=== PATIENT | female | born 1960 | race Caucasian/White ===

== ENCOUNTER 2019-01-18 14:44 | Inpatient (IN) | payer OTHER ==
[2019-01-18 15:11] VITALS: BMI 22.4
--- NOTE | 2019-01-18 15:36 | HP ---
CIWA Score Nausea/Vomitin-Int. Nausea w/Dry Heave Muscle Tremors: 4-Moderate,w/Arms Extend Anxiety: 3 Agitation: 3 Paroxysmal Sweats: 3 (Increased facial moisture) Orientation: 0-Oriented Tacttile Disturbances: 0-None Auditory Disturbances: 0-None Visual Disturbances: 0-None Headache: 2-Mild CIWA-Ar Total Score: 19 - Admission Criteria OASAS Guidelines: Admission for Medically Managed Detox: Requires at least one of the followin. CIWA greater than 12 2. Seizures within the past 24 hours 3. Delirium tremens within the past 24 hours 4. Hallucinations within the past 24 hours 5. Acute intervention needed for co occurring medical disorder 6. Acute intervention needed for co occurring psychiatric disorder 7. Severe withdrawal that cannot be handled at a lower level of care (continued vomiting, continued diarrhea, abnormal vital signs) requiring intravenous medication and/or fluids 8. Patient presents the following: CIWA greater than 12 Admission Criteria Met: Admission criteria met [facility] Chief Complaint: Alcohol withdrawal Allergies/Adverse Reactions: Allergies Allergy/AdvReac Type Severity Reaction Status Date / Time No Known Allergies Allergy Verified 01/18/19 15:02 History of Present Illness: Here for alcohol detox. First time at [facility] detox, but has been in other programs. Hx: Blackouts. Denies seizures or overdose. Alcohol use since age 17. Has been drinking current amount x 6 months. Heroin use started at age 15. No relapse in years. Has been on a MMTP for 12 years. Now currently at [place] [facility]. Current dose is 70 mg. Has a Narcan Kit at home. PMHx: Implanted cardiac catheterization technologist; No movement and shoulder pain (L) arm, eczema MHHx: Anxiety and depression. Denies thoughts of harming self or others. Patient Name: Deondre Cullen Date: 1960 Address: [address] [place] [address] Sex: Female Rx Written Rx Dispensed Drug Quantity Days Supply Prescriber Name 12/05/2018 12/06/2018 oxycodone hcl 10 mg tablet 40 5 Brandt Latham C 11/20/2018 11/21/2018 oxycodone hcl 10 mg tablet 40 5 Brandt Latham C 11/18/2018 11/18/2018 oxycontin er 20 mg tablet 14 7 Luis Whitfield (PA) 11/18/2018 11/18/2018 oxycodone hcl 10 mg tablet 28 7 Luis Whitfield (PA) 11/06/2018 11/07/2018 oxycodone hcl 5 mg tablet 40 5 DarnellayoBrandt C 10/03/2018 10/03/2018 oxycodone hcl 10 mg tablet 20 4 Dany Page (MD) 09/17/2018 09/17/2018 oxycodone hcl 5 mg tablet 15 7 Brando Estrada (DO) 09/11/2018 09/11/2018 oxycodone hcl 5 mg tablet 30 6 Brando Estrada (DO) 09/01/2018 09/02/2018 hydromorphone 2 mg tablet 30 8 Brando Estrada (DO) 08/29/2018 08/30/2018 hydromorphone 2 mg tablet 8 2 Rozina Woodall 08/25/2018 08/25/2018 hydromorphone 2 mg tablet 40 5 Brando Estrada (DO) 08/23/2018 08/24/2018 oxycodone-acetaminophen 5-325 mg tablet 16 4 Mario Alberto Irvin MD 05/20/2018 05/21/2018 clonazepam 0.5 mg tablet 60 30 Nikki Garcia MD 04/09/2018 04/10/2018 clonazepam 0.5 mg tablet 60 30 Nikki Garcia MD 02/25/2018 03/05/2018 clonazepam 0.5 mg tablet 60 30 Nikki Garcia MD 01/20/2018 01/24/2018 clonazepam 0.5 mg tablet 60 30 Nikki Garcia MD Exam Limitations: No Limitations - Ebola screening Have you traveled outside of the country in the last 21 days: No (N) Have you had contact with anyone from an Ebola affected area: No Have you been sick,other than usual withdrawal symptoms: No (No recent measles ) Do you have a fever: No - Review of Systems Constitutional: Diaphoresis, Changes in sleep (Difficulty falling and staying asleep) EENT: reports: Blurred Vision Respiratory: reports: No Symptoms reported Cardiac: reports: Other (Internal cardiac catheterization technologist) GI: reports: Nausea (w/ dry heaves), Indigestion (occ heart burn - OTC TUMS, Pepcid) : reports: No Symptoms Reported Musculoskeletal: reports: Joint Pain ((L) shoulder stabbing pain "10" and unable to lift arm.) Integumentary: reports: Lesions (Scratches on legs) Neuro: reports: Headache (Slight) Endocrine: reports: No Symptoms Reported Hematology: reports: No Symptoms Reported Psychiatric: reports: Judgement Intact, Orientated x3, Agitated, Anxious, Depressed (Denies thoughts of harming self or others) Patient History - PPD History Previous Implant?: Yes Documented Results: Negative w/proof Implanted On Prior [facility] Admission?: No PPD to be Administered?: Yes - Smoking Cessation Smoking history: Current every day smoker Have you smoked in the past 12 months: Yes Aproximately how many cigarettes per day: 20 Hx Chewing Tobacco Use: Yes Initiated information on smoking cessation: No 'Breaking Loose' booklet given: 01/18/19 - Substance & Tx. History Hx Alcohol Use: Yes Hx Substance Use: Yes Substance Use Type: Alcohol, Heroin Hx Substance Use Treatment: Yes (detox, rehab, currently on MMTP) - Substances abused Alcohol Substance route: Oral Frequency: Daily Amount used: one pint of voldka Age of first use: 17 Date of last use: 01/18/19 Admission Physical Exam BHS - Vital Signs Vital Signs: Vital Signs - 24 hr 01/18/19 14:52 Temperature 97.5 F L Pulse Rate 93 H Respiratory 18 Rate Blood Pressure 141/80 - Physical General Appearance: Yes: Nourished, Appropriately Dressed, Moderate Distress, Tremorous, Sweating (Increased facial moisture), Anxious HEENTM: Yes: EOMI, Hearing grossly Normal, Normocephalic, NEW, Other (dry, flaky skin in scalp) Respiratory: Yes: Lungs Clear, Normal Breath Sounds, No Respiratory Distress Neck: Yes: No masses,lesions,Nodules, Supple Breast: Yes: Breast Exam Deferred Cardiology: Yes: Regular Rhythm, Regular Rate, S1, S2, Other (Small object palpated at (R) chest area.) Abdominal: Yes: Non Tender, Soft, Increased Bowel Sounds Genitourinary: Yes: Within Normal Limits Back: Yes: Normal Inspection Musculoskeletal: Yes: Gait Steady, Joint Stiffness ((L) shoulder w/o movement and unable to lift (L). (L) arm incisional scar noted.) Extremities: Yes: Normal Capillary Refill, Tremors Neurological: Yes: workforce specialist II-XII NML intact, Fully Oriented, Alert, Other ( Decreased strength (L) hand) Integumentary: Yes: Dry (Except for increased facial moisture), Warm, Diaphoresis (Increased facial moisture), Rash (Dry, scaly rash face and hands) Lymphatic: Yes: Within Normal Limits - Diagnostic (1) Alcohol dependence with uncomplicated withdrawal Current Visit: Yes Status: Acute (2) Nicotine dependence, uncomplicated Current Visit: Yes Status: Chronic Qualifiers: Nicotine product type: cigarettes Qualified Code(s): F17.210 - Nicotine dependence, cigarettes, uncomplicated (3) Opioid dependence on agonist therapy Current Visit: Yes Status: Chronic Comment: On Methadone Maintenance (4) Eczema Current Visit: Yes Status: Chronic Qualifiers: Eczema type: unspecified Qualified Code(s): L30.9 - Dermatitis, unspecified (5) Seborrhea Current Visit: Yes Status: Chronic (6) Scratch chavez Current Visit: Yes Status: Acute Comment: Open scratches (L) calf area (7) Unspecified cardiac device in situ Current Visit: Yes Status: Chronic Comment: States implanted cardiac catheterization technologist (8) Joint disorder, unspecified Current Visit: Yes Status: Chronic Comment: (L) shoulder w/o movement Cleared for Admission S - [facility] Care: Medically Managed Detox Regimen/Protocol: Librium Breathalyzer - Breathalyzer Breathalyzer: 0.183 POC Urine test - Test device test lot number: [id number] Expiration date: 05/30/20 - Control test control: Yes - Result Urine Test Results: Negative - NO line present Urine Drug Screen - Test Device Lot number: [id number] Expiration date: 08/29/20 - Control Is test valid?: Yes - Results Drug screen NEGATIVE: No Urine drug screen results: MTD-Methadone, BZO-Benzodiazepines Inpatient Rehab Admission - Rehab Decision to Admit Inpatient rehab admission?: No
[2019-01-18] MEDS ORDERED: MAG HYDROX/AL HYDROX/SIMETH 30 ML UNIT-DOSE CUP PO PRN (16:19)
[2019-01-18] MEDS ORDERED: MENTHOL/PHENOL 1 EACH UD MM PRN (16:19)
[2019-01-18] MEDS ORDERED: MELATONIN 5 MG TABLETS PO PRN (16:19)
[2019-01-18] MEDS ORDERED: MAGNESIUM CITRATE 300 ML BOTTLE PO PRN (16:19)
[2019-01-18] MEDS ORDERED: BISMUTH SUBSALICYLATE 524 MG/30 ML UD PO PRN (16:19)
[2019-01-18] MEDS ORDERED: ACETAMINOPHEN 325 MG TABLET (FP) PO PRN ×2 (16:19)
[2019-01-18] MEDS ORDERED: MAGNESIUM HYDROX 2400MG/30ML ORAL SUSPENSION 30 ML CUP PO PRN (16:19)
[2019-01-18] MEDS ORDERED: guaiFENesin 200 MG/10 ML 10 ML UNIT-DOSE CUPS PO PRN (16:19)
[2019-01-18] MEDS ORDERED: COLLOIDAL OATMEAL 1 BAR EACH TP PRN (16:23)
[2019-01-18] MEDS: chlordiazePOXIDE HCL 25 MG CAPSULE PO SCH ×2 (16:53→22:09)
[2019-01-18] MEDS: chlordiazePOXIDE HCL 25 MG CAPSULE PO PRN ×2 (18:10→23:06)
[2019-01-18 18:21] LABS: URINE APPEARANCE CLEAR; URINE BILIRUBIN NEGATIVE (NEGATIVE); URINE COLOR YELLOW; URINE GLUCOSE (UA) NEGATIVE (NEGATIVE); URINE KETONE NEGATIVE (NEGATIVE); URINE LEUK ESTERASE NEGATIVE (NEGATIVE); URINE NITRITE NEGATIVE (NEGATIVE); URINE PROTEIN NEGATIVE (NEGATIVE); URINE UROBILINOGEN 0.2 mg/dL (0.2-1.0)
[2019-01-18] MEDS: METHOCARBAMOL 500 MG TABLET PO PRN (20:27)
[2019-01-18] MEDS ORDERED: hydrOXYzine PAMOATE 25 MG CAPSULE (FP) PO PRN (20:27)
[2019-01-18] MEDS: IBUPROFEN 400 MG TABLET (FP) PO PRN (22:10)
[2019-01-18] MEDS: THIAMINE HCL 100 MG TABLET (FP) PO SCH (22:12)
[2019-01-18] MEDS: BACITRACIN 0.9 GM PACKET TP SCH (22:13)
[2019-01-18] MEDS: CLOTRIMAZOLE/BETAMET DIPROP TOPICAL CREAM 45 GM TUBE TP SCH (22:13)
[2019-01-19] MEDS: chlordiazePOXIDE HCL 25 MG CAPSULE PO SCH ×4 (05:28→22:15)
[2019-01-19] MEDS ORDERED: METHADONE HCL 40 MG DISPERSABLE TABLET PO SCH (09:00)
[2019-01-19] MEDS ORDERED: METHADONE HCL 40 MG DISPERSABLE TABLET ONE (09:17)
[2019-01-19] MEDS ORDERED: METHADONE HCL 10 MG TABLET ONE (09:17)
[2019-01-19] MEDS: METHADONE 40 MG, METHADONE 30 MG PO SCH (09:28)
[2019-01-19] MEDS: METHOCARBAMOL 500 MG TABLET PO PRN ×3 (09:29→22:16)
[2019-01-19] MEDS: PRENATAL VITAMINS W/ FOLIC ACID TABLET (FP) PO SCH (09:29)
[2019-01-19] MEDS: CLOTRIMAZOLE/BETAMET DIPROP TOPICAL CREAM 45 GM TUBE TP SCH ×2 (09:30→22:17)
[2019-01-19 09:36] LABS: HEMATOCRIT 35.9 % (32.4-45.2); MCH 30.1 pg (25.7-33.7); MCHC 33.5 g/dl (32.0-36.0); MEAN CELL VOLUME 89.8 fl (80-96); MEAN PLT VOLUME 7.7 fl (7.5-11.1); PLATELET COUNT 167 K/MM3 (134-434); RDW 14.7 % (11.6-15.6); WHITE BLOOD COUNT 4.7 K/mm3 (4.0-10.0)
[2019-01-19 09:47] LABS: ALBUMIN 3.3 g/dl (3.4-5.0); ALK PHOS 174 U/L (45-117); ANION GAP 8 MMOL/L (8-16); BILIRUBIN,TOTAL 1.3 mg/dL (0.2-1); BLOOD UREA NITROGEN 15 mg/dL (7-18); CALCIUM 8.9 mg/dL (8.5-10.1); CHLORIDE 97 mmol/L (98-107); CO2 32 mmol/L (21-32); CREATININE 0.6 mg/dL (0.55-1.3); GLUCOSE,RANDOM 79 mg/dL (74-106); POTASSIUM 3.9 mmol/L (3.5-5.1); SGOT/AST 40 U/L (15-37); SGPT/ALT 28 U/L (13-61); SODIUM 137 mmol/L (136-145); TOT PROT 7.5 g/dl (6.4-8.2)
[2019-01-19] MEDS ORDERED: NICOTINE 21 MG/24 HOURS TOPICAL PATCH TD SCH (10:00)
--- NOTE | 2019-01-19 10:01 | EKG ---
Test Reason : Blood Pressure : / mmHG Vent. Rate : 081 BPM Atrial Rate : 081 BPM P-R Int : 132 ms QRS Dur : 088 ms QT Int : 402 ms P-R-T Axes : 048 026 059 degrees QTc Int : 466 ms NORMAL SINUS RHYTHM NORMAL ECG NO PREVIOUS ECGS AVAILABLE Confirmed by EAN INGRAM MD ([id number]) on 01/19/2019 10:01:07 AM Referred By: VALERIA RICHEY Confirmed By:ENA INGRAM MD
[2019-01-19] MEDS: BACITRACIN 0.9 GM PACKET TP SCH ×2 (10:11→22:15)
[2019-01-19] MEDS: SELENIUM SULFIDE 2.25% 180 ML SHAMPOO TP SCH (10:13)
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
[2019-01-19] MEDS: IBUPROFEN 400 MG TABLET (FP) PO PRN ×2 (13:25→22:16)
[2019-01-19] MEDS: chlordiazePOXIDE HCL 25 MG CAPSULE PO PRN (13:27)
[2019-01-19] MEDS: NICOTINE POLACRILEX 2 MG GUM BUC PRN ×2 (13:28→19:03)
--- NOTE | 2019-01-19 15:21 | PN ---
S CIWA - CIWA Score Nausea/Vomitin-No Nausea/No Vomiting Muscle Tremors: 3 Anxiety: 3 Agitation: 2 Paroxysmal Sweats: No Perspiration Orientation: 0-Oriented Tacttile Disturbances: 0-None Auditory Disturbances: 0-None Visual Disturbances: 0-None Headache: 2-Mild CIWA-Ar Total Score: 10 S Progress Note (SOAP) Subjective: PATIENT C/O ANXIETY, SHAKES, MILD HEADACHE AND RESTLESSNESS Objective: 01/19/19 15:19 Laboratory Tests 01/18/19 01/19/19 01/19/19 17:30 07:45 07:45 WBC 4.7 RBC 4.00 Hgb 12.0 Hct 35.9 MCV 89.8 MCH 30.1 MCHC 33.5 RDW 14.7 Plt Count 167 MPV 7.7 Sodium 137 Potassium 3.9 Chloride 97 L Carbon Dioxide 32 Anion Gap 8 BUN 15 Creatinine 0.6 Creat Clearance w eGFR 102.32 Random Glucose 79 Calcium 8.9 Total Bilirubin 1.3 H AST 40 H ALT 28 Alkaline Phosphatase 174 H Total Protein 7.5 Albumin 3.3 L Urine Color Yellow Urine Appearance Clear Urine pH 6.0 Ur Specific [place] 1.007 L Urine Protein Negative Urine Glucose (UA) Negative Urine Ketones Negative Urine Blood Negative Urine Nitrite Negative Urine Bilirubin Negative Urine Urobilinogen 0.2 Ur Leukocyte Esterase Negative RPR Titer 01/19/19 07:45 WBC RBC Hgb Hct MCV MCH MCHC RDW Plt Count MPV Sodium Potassium Chloride Carbon Dioxide Anion Gap BUN Creatinine Creat Clearance w eGFR Random Glucose Calcium Total Bilirubin AST ALT Alkaline Phosphatase Total Protein Albumin Urine Color Urine Appearance Urine pH Ur Specific [place] Urine Protein Urine Glucose (UA) Urine Ketones Urine Blood Urine Nitrite Urine Bilirubin Urine Urobilinogen Ur Leukocyte Esterase RPR Titer Nonreactive Last Vital Signs Temp Pulse Resp BP Pulse Ox 97.7 F 89 18 138/80 01/19/19 13:48 01/19/19 13:48 01/19/19 13:48 01/19/19 13:48 PE: ALERT AND ORIENTED X 3 SKIN WARM AND DRY +PERRLA, EOMS INTACT BL EXT +TREMORS, AMB AD JAMIE +ANXIETY PACING IN [place] Assessment: 01/19/19 15:20 WITHDRAWAL SX Plan: CONTINUE DETOX ENCOURAGE FLUIDS D/C NICOTINE PATCH PATIENT STATES IT MAKE HER ITCHY CONTINUE NICORETTE GUM PRN
[2019-01-19] MEDS: hydrOXYzine PAMOATE 50 MG CAPSULE (FP) PO PRN (19:02)
[2019-01-19] MEDS ORDERED: SUVOREXANT 10 MG TABLET PO PRN (22:00)
[2019-01-19] MEDS: THIAMINE HCL 100 MG TABLET (FP) PO SCH (22:16)
[2019-01-20] MEDS ORDERED: METHADONE HCL 10 MG TABLET ONE (04:11)
[2019-01-20] MEDS ORDERED: METHADONE HCL 40 MG DISPERSABLE TABLET ONE (04:12)
[2019-01-20] MEDS: METHADONE 40 MG, METHADONE 30 MG PO SCH (06:23)
[2019-01-20] MEDS: chlordiazePOXIDE HCL 25 MG CAPSULE PO SCH ×2 (06:24→10:09)
[2019-01-20] MEDS: METHOCARBAMOL 500 MG TABLET PO PRN ×2 (06:29→19:49)
[2019-01-20] MEDS: IBUPROFEN 400 MG TABLET (FP) PO PRN ×2 (06:29→15:16)
[2019-01-20] MEDS: CLOTRIMAZOLE/BETAMET DIPROP TOPICAL CREAM 45 GM TUBE TP SCH ×2 (10:09→21:33)
[2019-01-20] MEDS: BACITRACIN 0.9 GM PACKET TP SCH ×2 (10:09→21:30)
[2019-01-20] MEDS: PRENATAL VITAMINS W/ FOLIC ACID TABLET (FP) PO SCH (10:09)
[2019-01-20] MEDS ORDERED: LIDOCAINE 5% TOPICAL PATCH TP ONE (11:09)
[2019-01-20] MEDS: SELENIUM SULFIDE 2.25% 180 ML SHAMPOO TP SCH (11:10)
[2019-01-20] MEDS: BACLOFEN 10 MG TABLET (FP) PO SCH ×2 (13:15→21:30)
[2019-01-20] MEDS: GABAPENTIN 100 MG CAPSULE (FP) PO SCH ×2 (13:15→21:30)
--- NOTE | 2019-01-20 13:59 | PN ---
[facility] CIWA - CIWA Score Nausea/Vomitin-No Nausea/No Vomiting Muscle Tremors: 3 Anxiety: 2 Agitation: 3 Paroxysmal Sweats: 2 Orientation: 0-Oriented Tacttile Disturbances: 0-None Auditory Disturbances: 0-None Visual Disturbances: 0-None Headache: 0-None Present CIWA-Ar Total Score: 10 S Progress Note (SOAP) Subjective: left shoulder pain sweats anxiety Objective: 01/20/19 13:58 Vital Signs Temperature 97.3 F L 01/20/19 13:18 Pulse Rate 79 01/20/19 13:18 Respiratory Rate 18 01/20/19 13:18 Blood Pressure 139/83 01/20/19 13:18 O2 Sat by Pulse Oximetry (%) Laboratory Tests 01/18/19 01/19/19 01/19/19 17:30 07:45 07:45 WBC 4.7 RBC 4.00 Hgb 12.0 Hct 35.9 MCV 89.8 MCH 30.1 MCHC 33.5 RDW 14.7 Plt Count 167 MPV 7.7 Sodium 137 Potassium 3.9 Chloride 97 L Carbon Dioxide 32 Anion Gap 8 BUN 15 Creatinine 0.6 Creat Clearance w eGFR 102.32 Random Glucose 79 Calcium 8.9 Total Bilirubin 1.3 H AST 40 H ALT 28 Alkaline Phosphatase 174 H Total Protein 7.5 Albumin 3.3 L Urine Color Yellow Urine Appearance Clear Urine pH 6.0 Ur Specific [place] 1.007 L Urine Protein Negative Urine Glucose (UA) Negative Urine Ketones Negative Urine Blood Negative Urine Nitrite Negative Urine Bilirubin Negative Urine Urobilinogen 0.2 Ur Leukocyte Esterase Negative RPR Titer 01/19/19 07:45 WBC RBC Hgb Hct MCV MCH MCHC RDW Plt Count MPV Sodium Potassium Chloride Carbon Dioxide Anion Gap BUN Creatinine Creat Clearance w eGFR Random Glucose Calcium Total Bilirubin AST ALT Alkaline Phosphatase Total Protein Albumin Urine Color Urine Appearance Urine pH Ur Specific [place] Urine Protein Urine Glucose (UA) Urine Ketones Urine Blood Urine Nitrite Urine Bilirubin Urine Urobilinogen Ur Leukocyte Esterase RPR Titer Nonreactive labs noted aaox3 ambulating no acute distress Assessment: 01/20/19 13:58 mild withdrawal sx Plan: continue detox d/c in am pt wants to see her orthopedic doctor regarding her left shoulder post op. lidocaine patch baclofen prn motrin 800mg prn
[2019-01-20] MEDS: NICOTINE POLACRILEX 2 MG GUM BUC PRN (14:12)
[2019-01-20] MEDS: chlordiazePOXIDE HCL 25 MG CAPSULE PO PRN (15:16)
[2019-01-20] MEDS: chlordiazePOXIDE HCL 10 MG CAPSULE PO SCH ×2 (16:59→22:30)
[2019-01-20] MEDS ORDERED: chlordiazePOXIDE HCL 10 MG CAPSULE PO PRN (17:00)
[2019-01-20] MEDS: THIAMINE HCL 100 MG TABLET (FP) PO SCH (21:31)
[2019-01-20] MEDS ORDERED: LIDOCAINE PATCH REMOVAL MC SCH (22:00)
[2019-01-21] MEDS ORDERED: METHADONE HCL 40 MG DISPERSABLE TABLET ONE (05:10)
[2019-01-21] MEDS ORDERED: METHADONE HCL 10 MG TABLET ONE (05:10)
[2019-01-21] MEDS: METHADONE 40 MG, METHADONE 30 MG PO SCH (06:12)
[2019-01-21] MEDS: chlordiazePOXIDE HCL 10 MG CAPSULE PO SCH ×2 (06:12→10:29)
[2019-01-21] MEDS: BACLOFEN 10 MG TABLET (FP) PO SCH ×2 (06:12→13:00)
[2019-01-21] MEDS: GABAPENTIN 100 MG CAPSULE (FP) PO SCH ×2 (06:12→13:00)
--- NOTE | 2019-01-21 09:00 | DS ---
[facility] Detox Discharge Summary Admission Date: 01/18/19 Discharge Date: 01/21/19 - History Present History: Alcohol Dependence, Opioid Dependence - Physical Exam Results Vital Signs: Vital Signs Temperature 97.5 F L 01/20/19 22:19 Pulse Rate 74 01/20/19 22:19 Respiratory Rate 18 01/21/19 03:30 Blood Pressure 125/76 01/20/19 22:19 O2 Sat by Pulse Oximetry (%) - Treatment Hospital Course: Detox Protocol Followed, Detoxed Safely, Responded well, Discharged Condition Good, Rehab Referral Accepted - Medication Discharge Medications: Ambulatory Orders Methadone [Dolophine -] 70 mg PO DAILY 01/18/19 - Diagnosis (1) Alcohol dependence with uncomplicated withdrawal Current Visit: Yes Status: Chronic (2) Alcohol-induced anxiety disorder Current Visit: Yes Status: Chronic (3) Alcohol-induced sleep disorder Current Visit: Yes Status: Chronic (4) Anxiety disorder Current Visit: Yes Status: Chronic (5) Eczema Current Visit: Yes Status: Chronic Qualifiers: Eczema type: unspecified Qualified Code(s): L30.9 - Dermatitis, unspecified (6) Joint disorder, unspecified Current Visit: Yes Status: Chronic (7) Nicotine dependence, uncomplicated Current Visit: Yes Status: Chronic Qualifiers: Nicotine product type: cigarettes Qualified Code(s): F17.210 - Nicotine dependence, cigarettes, uncomplicated (8) Opioid dependence on agonist therapy Current Visit: Yes Status: Chronic (9) Unspecified cardiac device in situ Current Visit: Yes Status: Chronic - AMA Did Patient Leave Against Medical Advice: No (referred to her MMTP program.)
[2019-01-21] MEDS: PRENATAL VITAMINS W/ FOLIC ACID TABLET (FP) PO SCH (10:29)
[2019-01-21] MEDS: BACITRACIN 0.9 GM PACKET TP SCH (10:29)
[2019-01-21] MEDS: CLOTRIMAZOLE/BETAMET DIPROP TOPICAL CREAM 45 GM TUBE TP SCH (10:30)
[2019-01-21] MEDS: SELENIUM SULFIDE 2.25% 180 ML SHAMPOO TP SCH (10:30)
[2019-01-21 14:29] VITALS: BP 121/78; PULSE 91; TEMP 98.2
[2019-01-21] MEDS ORDERED: chlordiazePOXIDE HCL 10 MG CAPSULE PO SCH (17:00)
[2019-01-21] MEDS: hydrOXYzine PAMOATE 50 MG CAPSULE (FP) PO PRN (17:44)
[2019-01-21] MEDS: METHOCARBAMOL 500 MG TABLET PO PRN (17:44)
== END 2019-01-21 18:10 | disposition home or self-care (01) | DRG 773 ==
LOC: YASAS 14:44 → Y6N 15:58
PROVIDERS: ADMIT Surgery; ATTEND Surgery
PROC: HZ2ZZZZ Detoxification Services for Substance Abuse Treatment (ICD-10-PCS; principal; 2019-01-18)
DX: F10.230 Alcohol dependence with withdrawal, uncomplicated (principal); F10.280 Alcohol dependence with alcohol-induced anxiety disorder; F10.282 Alcohol dependence with alcohol-induced sleep disorder; F11.20 Opioid dependence, uncomplicated; F17.219 Nicotine dependence, cigarettes, with unspecified nicotine-induced disorders; F41.9 Anxiety disorder, unspecified; L30.9 Dermatitis, unspecified; L21.9 Seborrheic dermatitis, unspecified; L90.6 Striae atrophicae; M54.9 Dorsalgia, unspecified; Z95.818 Presence of other cardiac implants and grafts
CPT/HCPCS: 36415; 80053; 81003; 85027; 86593; 93005; 93010; J0475